=== PATIENT | male | born 1960 | race Caucasian/White ===

== ENCOUNTER 2019-04-07 06:41 | Day surgery (SDC) | payer BC ==
--- NOTE | 2019-04-04 11:34 | RAD REPORT ---
EXAM DESCRIPTION: Renetta Santos (2 Views)04/04/2019 11:21 am CLINICAL HISTORY: Preop for cardiac catheterization COMPARISON: 2017 FINDINGS: The lungs appear clear of acute infiltrate. The heart is normal size IMPRESSION: No acute abnormalities displayed
[2019-04-04 11:56] LABS: Absolute Lymphocytes (CBC) 1.3 K/uL (0.7-4.9); Basophils % 1.4 % (0-1.3); Lymphocytes % 17.2 % (15.3-44.8); MPV 9.2 fL (7.6-11.3); RBC Red Blood Cell Count 5.12 M/uL (4.33-5.43)
[2019-04-04 12:00] LABS: Protime INR 1.11
[2019-04-04 12:04] LABS: Potassium 4.9 mmol/L (3.5-5.1)
[2019-04-07] MEDS ORDERED: LIDOCAINE 1% MPF 30 ML VIAL ONE (07:10)
[2019-04-07] MEDS ORDERED: HEPA 1000U/500MLS 1,000 UNIT/500 ML BAG IV ONE ×2 (07:10→07:17)
[2019-04-07] MEDS ORDERED: NA CHLORIDE 0.9% 500 ML ONE (07:20)
[2019-04-07] MEDS ORDERED: HEPARIN 5000 UNIT/ML 1 ML VIAL ONE (07:50)
[2019-04-07] MEDS ORDERED: NA CHLORIDE 0.9% 0 ML ONE (07:51)
[2019-04-07] MEDS ORDERED: NITROGLYCERIN 100 MCG/ML SYR (for cath lab use only) IV ONE (07:51)
[2019-04-07] MEDS ORDERED: FENTANYL CITR 100 MCG/2 ML ONE (07:51)
[2019-04-07] MEDS ORDERED: ATROPINE SULF 1 MG/10 ML SYR IV ONE (07:51)
[2019-04-07] MEDS ORDERED: MIDAZOLAM HCL 2 MG/2 ML INJ ONE ×2 (07:51→08:14)
[2019-04-07] MEDS ORDERED: NITROGLYCERIN/D5W 25 MG/250 ML BTL IV ONE (07:51)
[2019-04-07] MEDS ORDERED: NICARDIPINE HCL 25 MG/10 ML IV ONE (07:51)
[2019-04-07] MEDS ORDERED: ACETYLCYST 20% 4 ML VIAL IH ONE (07:53)
[2019-04-07 09:25] VITALS: TEMP 97
[2019-04-07 10:44] VITALS: BP 107/69; O2SAT 98
--- NOTE | 2019-04-07 18:59 | OP ---
Surgeon: Tirso Duggan MD Identification: A 58-year-old man. Primary Care Physician: Stephen Sheridan MD Procedures: Left heart catheterization, coronary angiography. No left ventriculogram was done due t o elevated creatinine. Procedure Findings: The patient had normal pressures. His coronary arteries were free of any signif icant disease. An LAD stent in the mid LAD had been placed several years ago. It was widely patent. There was a 40% plaque distal to the stent, 40% plaque in the mid RCA, diffuse mild lumen irregular ities, and there was no indication for coronary or other intervention. Procedure In Detail: The patient was brought to the cardiac laborer/grade check in a fasting state, sedated wit h Versed and fentanyl, titrated to an adequate level of sedation. Right radial approach was used. W e anesthetized the skin around the right radial artery with 1% lidocaine. We entered the artery with a 21-gauge needle, cannulated it with a 0.021 inch diameter guidewire and placed the sheath. For eath placement, had to be modified and redone. So, we went through the same procedure twice and we g ave a good sheath placement the second time. A radial cocktail was given. I then used a Glidewire w ith a short radius J-tip inside a TIG catheter. We guided the TIG catheter to the ascending aorta. We were able to take pressures in the left ventricle, angiogram of left and right coronaries with the same catheter. At the end of the procedure after the decision had been made not to do an interventi on, we removed the catheter over a guidewire, flushed the sheath, removed, and closed the arteriotomy using a TR band. Estimated Blood Loss: 5 cc. Complications: None. STEPHANIE/MODL Voice ID: [id number] Report ID: [id number]
== END 2019-04-07 10:46 | disposition home or self-care (01) ==
LOC: CCL 06:41
PROVIDERS: ATTEND Internal Medicine
PROC: 4A023N7 Measurement of Cardiac Sampling and Pressure, Left Heart, Percutaneous Approach (ICD-10-PCS; principal; 2019-04-07)
PROC: B201YZZ Plain Radiography of Multiple Coronary Arteries using Other Contrast (ICD-10-PCS; 2019-04-07)
PROC: B205YZZ Plain Radiography of Left Heart using Other Contrast (ICD-10-PCS; 2019-04-07)
DX: I25.10 Atherosclerotic heart disease of native coronary artery without angina pectoris (principal); I10 Essential (primary) hypertension; E78.2 Mixed hyperlipidemia; F17.200 Nicotine dependence, unspecified, uncomplicated
CPT/HCPCS: 85025; 80048; 36415; 85610; 82947; 85730; 71046; 93458; C1893; J1644; J2250 ×2; J3010; J7040; J0583

== ENCOUNTER 2025-01-05 11:32 | Emergency (ER) | payer OTHER ==
--- OUTSIDE RECORDS SUMMARY | 2025-01-05 11:36 | XMS REPORT | Continuity of Care Document ---
Author Name Unknown Address [address] [facility] [address] [place] [address] [facility] [place] Address [address] [facility] [address] [place] [address] Care Team Providers Care Insole Stiffener Name Role Phone Stephen Sheridan Primary Care Physician + [phone] KATELYN COLE Attending Clinician Unavailable KATELYN COLE Attending Clinician Unavailable [facility] Urology 1 - Attending Clinician Unavailable Danny Wen MD Attending Clinician [phone] Doctor Unassigned, Holly Attending Clinician U navailable DANNY WEN Attending Clinician Unavailable Judy Montalvo RN Attending Clinician Unavailab le Only, Ang Db Test Attending Clinician Unavailabl e EbOk Greco Attending Clinician [phone] OK SAUL Attending Clinician Unavailable Candy Matthews Attending Clinician [phone] CANDY PERALES Attending Clinician Unavailable TING VELASCO Attending Clinician Unavailable Lab, Adc Fam Pob I Attending Clinician Unavailab Tawanna Burr Attending Clinician [phone] TAWANNA SEAY Attending Clinician Unavailable Matilda Walker Attending Clinician [phone] MATILDA MCCARTNEY Attending Clinician Unavailable KATELYN COLE Admitting Clinician Unavailable Payers Payer Name Policy Type Policy Number Effective Date Expirati on Date Source [facility] OUT [facility] STATE [id number] 2022 00:00:00 [facility] UMR [id number] 2023 00:00:00 Problems Condition Name Condition Details Condition Category Status Onset Date Resolution Date Last Treatment Date Treating Clinician Comments Source Encysted hydrocele Encysted hydrocele Disease Active 12-24 00:00: 00 [facility] Non-recurr ent unilateral inguinal hernia without obstructio n or gangrene Non-recurr ent unilateral inguinal hernia without obstructio n or gangrene Disease Active 2022-04 00:00: 00 [facility] Hydrocele, unspecifie d hydrocele type Hydrocele, unspecifie d hydrocele type Disease Active 2022-04 00:00: 00 [facility] Non-recurr ent bilateral inguinal hernia without obstructio n or gangrene Non-recurr ent bilateral inguinal hernia without obstructio n or gangrene Disease Active 2022-04 00:00: 00 [facility] Encounter for screening colonoscop y Encounter for screening colonoscop y Disease Active 2022-04 00:00: 00 [facility] Allergies, Adverse Reactions, Alerts Allergy Name Allergy Type Status Severity Reaction(s) Onset Date Inactive Date Treating Clinician Comments Source HYDROMOR PHONE DRUG INGREDI Active Med ITCHING 2022-04 00:00: 00 [facility] Hydromor phone Propensi ty to adverse reaction s to drug Active Itching 2022-04 00:00: 00 [facility] Hydromor phone Allergy to substanc e Active Itching 2022-04 00:00: 00 Other Reaction( s): Unknown [facility] NO KNOWN ALLERGIE S Drug Class Active [facility] Social History Social Habit Start Date Stop Date Quantity Comments Source Exposure to SARS-CoV-2 (event) Not sure [facility] Sexual orientation [facility] Tobacco use and exposure 2024-12-24 00:00:00 2024-12-24 00:00:00 Smokeless tobacco non-user [facility] History of Social function 2024-12-24 00:00:2024-12-24 00:00:00 [facility] Sex 2024-12-18 10:11:16 2024-12-18 10:11:16 Male (finding) [facility] Sex assigned at 1960 00:00:00 1960 00:00:00 [facility] Smoking Status Start Date Stop Date Source Never smoked tobacco [facility] Tobacco smoking consumption unknown [facility] Medications Ordered Medication Name Filled Medication Name Start Date Stop Date Current Medication? Ordering Clinician Indication Dosage Frequency Signature (SIG) Comments Components Source Ozempic, 2 MG/DOSE, 8 MG/3ML solution pen-injecto r 12-24 08:30: 35 Yes 2mg Inject 2 mg under the skin 1 (one) time per week. [facility] hydrOXYzine HCl (Atarax) 25 MG tablet 12-09 00:00: 00 Yes 1{tbl} QD Take 1-2 tablets by mouth at night if needed for itching. [facility] predniSONE (Deltasone) 10 MG tablet 12-09 00:00: 00 Yes 1{tbl} Take 1 tablet by mouth if needed. [facility] triamcinolo ne (Kenalog) 0.1 % cream 12-09 00:00: 00 Yes APPLY SPARINGLY TO AFFECTED AREA TOPICALLY TWICE A DAY NEEDED FOR 7-10 DAYS OR LESS [facility] Farxiga 10 MG 12-09 00:00: 00 Yes 10mg QD Take 10 mg by mouth in the morning. [facility] fluticasone (Flonase) 50 MCG/ACT nasal spray 11-29 00:00: 00 Yes 1{spray } QD Administer 1-2 sprays into each nostril in the morning. [facility] doxepin (SINEquan) 25 MG capsule 11-27 00:00: 00 Yes 25mg Take 25 mg by mouth every night. [facility] tiZANidine (Zanaflex) 4 MG tablet 11-27 00:00: 00 Yes TAKE 1/2 TO 1 TABLET BY MOUTH IN THE EVENING NEEDED [facility] Xarelto 20 MG tablet 11-16 00:00: 00 Yes 20mg QD Take 20 mg by mouth in the morning. with food. [facility] rosuvastati n (Crestor) 20 MG tablet 10-02 00:00: 00 Yes 20mg QD Take 20 mg by mouth in the morning. [facility] gabapentin (Neurontin) 600 MG tablet 04 00:00: 00 Yes 600mg Q.5D Take 600 mg by mouth in the morning and 600 mg before bedtime. [facility] furosemide (Lasix) 20 MG tablet -02 00:00: 00 Yes 20mg Take 20 mg by mouth if needed. MAX 2-3 TIMES A WEEK [facility] traMADol (Ultram) 50 MG tablet 12-30 00:00: 00 Yes 50mg Take 50 mg by mouth every 8 (eight) hours if needed. [facility] water for irrigation irrigation solution 2022-04 14:59: 00 02-13 15:45 :48 No PRN, Starting on Sun02/13/23 at 0859, Until Sun02/13/23 at 0945, Routine, Intra-op [facility] simethicone (GAS RELIEF (SIMETHICON E)) 40 mg/0.6 mL drops 2022-04 14:59: 00 02-13 15:45 :48 No PRN, Starting on Sun02/13/23 at 0859, Until Sun02/13/23 at 0945, Routine, Intra-op [facility] lactated ringers IV infusion 1,000 mL 2022-04 13:15: 00 02-13 13:29 :00 No 1000mL at 42 mL/hr, 1,000 mL, IV Infusion, ONCE, 1 dose, On Sun02/13/23 at 0715, Routine, DSU Pre-op [facility] semaglutide (OZEMPIC) 2 mg/dose (8 mg/3 mL) PnIj 2022-04 11:07: 23 Yes 2mg inject 2 mg under the skin every 2 (two) weeks. Last dose 01/26/23 [facility] semaglutide (OZEMPIC) 2 mg/dose (8 mg/3 mL) PnIj 2022-04 0 11:35: 37 Yes 2mg inject 2 mg under the skin every 2 (two) weeks. Last dose 01/26/23 [facility] peg-electro lyte soln 236-22.74-6 .74 -5.86 gram solution 2022-04 0 00:00: 00 02-06 04:59 :00 No 4000mL Take 4,000 mL by mouth once now for 1 dose. [facility] semaglutide (OZEMPIC) 2 mg/dose (8 mg/3 mL) PnIj 2022-04 14:58: 06 Yes [facility] XARELTO 20 mg tablet 12-04 00:00: 00 Yes 20mg Take 1 tablet by mouth at bedtime. [facility] gabapentin 600 mg tablet 12-03 00:00: 00 Yes 600mg Take 1 tablet by mouth in the morning and 1 tablet in the evening. [facility] gabapentin 600 mg tablet 12-03 00:00: 00 Yes 1200mg Take 2 tablets by mouth at bedtime. [facility] rosuvastati n 20 mg tablet 10-16 00:00: 00 Yes 20mg Take 1 tablet by mouth at bedtime. [facility] No known medications 1 17:49: 50 No [facility] Vital Signs Vital Name Observation Time Observation Value Comments S ource Systolic blood pressure 2024-12-24 13:26:00 108 mm[Hg] [facility] Diastolic blood pressure 2024-12-24 13:26:00 66 mm[Hg] [facility] Heart rate 2024-12-24 13:26:00 51 /min [facility] Respiratory rate 2024-12-24 13:26:00 16 /min [facility] Body height 2024-12-24 13:26:00 [facility]4 [facility] weight 2024-12-24 13:26:00 [facility]239 [facility] BMI 2024-12-24 13:26:00 30.03 [facility] Sy[facility]olic blood pressure 2023-03-05 20:08:00 137 mm[Hg] [facility] Diastolic blood pressure 2023-03-05 20:08:00 81 mm[Hg] [facility] Heart rate 2023-03-05 20:08:00 60 /min [facility] Body temperature 2023-03-05 20:08:00 36.56 [facility] Respiratory rate 2023-03-05 20:08:00 18 /min [facility] Body height 2023-03-05 20:08:00 185.4 cm [facility] Body weight 2023-03-05 20:08:00 98.431 kg [facility] BMI 2023-03-05 20:08:00 28.63 kg/m2 [facility] Oxygen saturation in Arterial blood by Pulse oximetry 2023-03-05 20:08:00 98 /min [facility] Heart rate 2023-02-13 16:27:00 59 /min [facility] Oxygen saturation in Arterial blood by Pulse oximetry 2023-02-13 16:27:00 94 /min [facility] Systolic blood pressure 2023-02-13 16:26:00 126 mm[Hg] [facility] Diastolic blood pressure 2023-02-13 16:26:00 72 mm[Hg] [facility] Respiratory rate 2023-02-13 16:26:00 15 /min [facility] Body temperature 2023-02-13 15:46:00 36.06 [facility] Body height 2023-02-06 16:00:00 185.4 cm [facility] Body weight 2023-02-06 16:00:00 99.338 kg [facility] BMI 2023-02-06 16:00:00 28.89 kg/m2 [facility] Systolic blood pressure 2023-02-13 13:17:00 136 mm[Hg] [facility] Diastolic blood pressure 2023-02-13 13:17:00 92 mm[Hg] [facility] Heart rate 2023-02-13 13:17:00 70 /min [facility] Body temperature 2023-02-13 13:17:00 36.39 [facility] Respiratory rate 2023-02-13 13:17:00 18 /min [facility] Oxygen saturation in Arterial blood by Pulse oximetry 2023-02-13 13:17:00 98 /min [facility] Body height 2023-02-06 16:00:[address] [facility] Body weight 2023-02-06 16:00:00 99.338 kg [facility] BMI 2023-02-06 16:00:00 28.89 kg/m2 [facility] Systolic blood pressure 2023-02-05 19:54:00 137 mm[Hg] [facility] Diastolic blood pressure 2023-02-05 19:54:00 81 mm[Hg] [facility] Heart rate 2023-02-05 19:54:00 60 /min [facility] Body temperature 2023-02-05 19:54:00 36.11 [facility] Respiratory rate 2023-02-05 19:54:00 18 /min [facility] Body height 2023-02-05 19:54:[address] [facility] Body weight 2023-02-05 19:54:00 99.338 kg [facility] BMI 2023-02-05 19:54:00 28.89 kg/m2 [facility] Oxygen saturation in Arterial blood by Pulse oximetry 2023-02-05 19:54:00 100 /min [facility] Systolic blood pressure 2023-01-23 19:56:00 139 mm[Hg] [facility] Diastolic blood pressure 2023-01-23 19:56:00 77 mm[Hg] [facility] Heart rate 2023-01-23 19:56:00 76 /min [facility] Body temperature 2023-01-23 19:56:00 36.78 [facility] Respiratory rate 2023-01-23 19:56:00 18 /min [facility] Body height 2023-01-23 19:56:00 185.4 cm [facility] 2023-01-23 19:56:00 104.327 kg [facility] BMI 2023-01-23 19:56:00 30.34 kg/m2 [facility] Oxygen saturation in Arterial blood by Pulse oximetry 2023-01-23 19:56:00 92 /min [facility] Procedures Procedure Date / Time Performed Performing Clinician Source DISCLOSURE AND CONSENT, MEDICAL AND SURGICAL PROCEDURES 2023-03-05 06:01:00 Doctor Unassigned, Holly [facility] COLONOSCOPY (ENDO) 2023-02-13 14:41:58 Stephen Sheridan [facility] COLONOSCOPY (ENDO) 2023-02-13 14:41:58 Stephen Sheridan [facility] COLONOSCOPY 2023-02-13 14:31:00 [facility] 2023-02-13 13:23:00 Kelsey [facility] POCT GLUCOSE (AUTOMATED) 2023-02-13 13:23:00 Kelsey [facility] DAY SURGERY - ADC 2023-02-13 06:01:00 Doctor Chacha ssigned, Holly [facility] DISCLOSURE AND CONSENT, MEDICAL AND SURGICAL PROCEDURES 2023-02-05 05:01:00 Doctor Unassigned, Holly [facility] MEDICAL RELEASE/CLEARANCE FORMS 2023-02-02 05:01:00 Doctor Unassigned, Holly [facility] EXTERNAL PROVIDER RECORDS 2023-02-01 05:01:00 Doctor Unassigned, Holly [facility] US SCROTUM AND CONTENTS 2023-01-31 19:45:00 Maged Wen [facility] CT ABDOMEN PELVIS WO CONTRAST 2023-01-31 19:02:00 Danny Wen [facility] POCT URINALYSIS AUTO 2023-01-23 19:59:00 Brennan Wen [facility] REFERRAL- REQUEST/RESPONSE 2023-01-18 05:01:00 Doctor Unassigned, Holly [facility] Encounters Start Date/Time End Date/Time Encounter Type Admission Type Attending Clinicians Care Facility Care Department Encounter ID Source 2023-03-20 15:19:24 Outpatient R [facility]N [facility] [id number] [facility] 2025-01-07 11:00:00 2025-01-07 11:00:00 Outpatient [facility] [id number] [facility] 2024-12-24 08:30:00 2024-12-24 09:03:25 Procedure Visit [facility] 1 - [facility] 1.2.840.114 350.1.13.58 9.2.7.2.686 [id number] [facility] 2023-05-07 00:00:00 2023-05-07 00:00:00 Telephone [facility] 1.2.840.114 350.1.13.10 4.2.7.2.686 [id number] [facility] 2023-03-22 00:00:00 2023-03-22 00:00:00 Telephone Kelsey [facility] BU[facility]ING 1.2.840.114 350.1.13.10 4.2.7.2.686 [id number] [facility] 2023-03-06 00:00:00 2023-03-06 00:00:00 Telephone Danny Wen [facility] 1.2.840.114 350.1.13.10 4.2.7.2.686 [id number] [facility] 2023-03-06 00:00:00 2023-03-06 00:00:00 Patient Secure Msg Doctor Unassigned, Holly [facility] 1.2.840.114 350.1.13.10 4.2.7.2.686 [id number] [facility] 2023-03-05 14:30:00 2023-03-05 15:20:54 Outpatient R KATELYN COLE [facility] [id number] [facility] 2023-03-05 14:30:00 2023-03-05 15:20:54 [facility] 1.2.840.114 350.1.13.10 4.2.7.2.686 [id number] [facility] 2023-03-05 00:00:00 2023-03-05 00:00:00 Orders Only Doctor Unassigned, Holly [facility] 1.2.840.114 350.1.13.10 4.2.7.2.686 [id number] [facility] 2023-02-28 00:00:00 2023-02-28 00:00:00 Telephone [facility] BUILDING 1.2.840.114 350.1.13.10 4.2.7.2.686 [id number] [facility] 2023-02-28 00:00:00 2023-02-28 00:00:00 [facility] 1.2.840.114 350.1.13.10 4.2.7.2.686 [id number] [facility] 2023-02-26 13:30:00 2023-02-26 13:30:00 Outpatient R KATELYN COLE [facility] [id number] [facility] 2023-02-13 07:05:00 2023-02-13 10:41:00 [facility] [id number] [facility] 2023-02-13 07:05:00 2023-02-13 10:41:00 [facility] 1.2.840.114 350.1.13.10 4.2.7.2.686 [id number] [facility] 2023-02-13 08:22:00 2023-02-13 09:26:00 Surgery [facility] 1.2.840.114 350.1.13.10 4.2.7.2.686 [id number] [facility] 2023-02-05 15:45:00 2023-02-05 16:22:22 Outpatient R KELSEY KATELYN COLE [facility] [id number] [facility] 2023-02-05 15:45:00 2023-02-05 16:22:22 Office Visit [facility] 1.2.840.114 350.1.13.10 4.2.7.2.686 [id number] [facility] 2023-02-05 00:00:00 2023-02-05 00:00:00 Orders Only Doctor Unassigned, Holly [facility] 1.2.840.114 350.1.13.10 4.2.7.2.686 [id number] [facility] 2023-02-02 00:00:00 2023-02-02 00:00:00 Orders Only Doctor Unassigned, Holly [facility] 1.2.840.114 350.1.13.10 4.2.7.2.686 [id number] [facility] 2023-02-01 00:00:00 2023-02-01 00:00:00 Telephone Behzad [facility] 1.2.840.114 350.1.13.10 4.2.7.2.686 [id number] [facility] 2023-02-01 00:00:00 2023-02-01 00:00:00 Orders Only Doctor Unassigned, Holly [facility] 1.2.840.114 350.1.13.10 4.2.7.2.686 [id number] [facility] 2023-01-31 13:46:04 2023-01-31 23:59:00 Hospital Encounter [facility] 1.840.114 350.1.13.10 4.2.7.2.686 [id number] [facility] 2023-01-31 13:45:52 2023-01-31 13:45:52 Outpatient R [facility] [id number] [facility] 2023-01-31 13:45:52 2023-01-31 13:45:52 Hospital Encounter [facility] 1.840.114 350.1.13.10 4.2.7.2.686 [id number] [facility] 2023-01-23 15:00:00 2023-01-23 15:30:32 Outpatient R [facility] [id number] [facility] 2023-01-23 15:00:00 2023-01-23 15:30:32 [facility] 1.0.114 350.1.13.10 4.2.7.2.686 [id number] [facility] 2023-01-18 00:00:00 2023-01-18 00:00:00 Orders Only Doctor Unassigned, Holly [facility] 1.0.114 350.1.13.10 4.2.7.2.686 [id number] [facility] 2023-01-18 00:00:00 2023-01-18 00:00:00 Telephone [facility] BUILD[facility] 1.2.114 350.1.13.10 4.2.7.2.686 [id number] [facility] 2021-05-13 00:00:00 2021-05-13 00:00:00 Letter (Out) Selvin, Judy [facility] 1.114 350.1.13.10 4.2.7.2.686 [id number] [facility] 2021-05-12 10:15:00 2021-05-12 10:30:00 Laboratory Only Only, Ang Db Test Yuli [facility] OFF[facility] BUILDING 1.114 350.1.13.10 4.2.7.2.686 [id number] [facility] 2021-05-12 10:15:00 2021-05-12 10:05:39 [address] [facility] [id number] [facility] 2021-04-16 00:00:00 2021-04-16 00:00:00 Letter (Out) Judy Montalvo [facility] 1.114 350.1.13.10 4.2.7.2.686 [id number] [facility] 2021-04-14 18:00:00 2021-04-14 18:15:00 Laboratory Only Only, Ang Db Test Petar [facility] OFF[facility] BUILD[facility] 1.114 350.1.13.10 4.2.7.2.686 [id number] [facility] 2021-04-14 18:00:00 2021-04-14 17:53:28 Outpatient R CANDY PERALES [facility] [id number] [facility] 2020-09-22 08:45:00 2020-09-22 08:45:00 Outpatient TING MORENO [facility] [id number] [facility] 2020-07-08 08:25:13 2020-07-08 08:45:13 Laboratory Only Lab, Adc Fam Tawanna Delatorre [facility] Diane [facility] Office Building [address] 1..114 350.1.13.10 4.2.7.2.686 [id number] [facility] 2020-07-08 08:20:00 2020-07-08 08:20:00 Outpatient TAWANNA BYNUM [facility] [id number] [facility] 2020-02-06 10:13:13 2020-02-06 10:33:13 Laboratory Only Lab, [facility] ..840.114 350.1.13.10 4.2.7.2.686 [id number] [facility] 2020-02-06 10:20:00 2020-02-06 10:20:00 [facility] [id number] [facility] 2019-12-10 08:10:13 2019-12-10 08:30:13 Laboratory Only Lab, [facility] ..840.114 350.1.13.10 4.2.7.2.686 [id number] [facility] 2019-12-10 08:30:00 2019-12-10 08:30:00 [facility] [id number] [facility] Results Test Description Test Time Test Comments Results Result Co mments Source [facility] GLUCOSE (AUTOMATED)2023-02-13 13:25:10* Test Item Value Reference Range Interpretation Comme nts POCT GLU (test code = 6464818624) 104 mg/dL 70-110 Lab Interpretation (test cod e = [id number]) Normal [facility] URINALYSIS, [id number] 20:00:00 * Test Item Value Reference Range Interpretation Comme nts POCT U SP GRAV (test code = 3255) 1.020 mg/dl 1.005-1.025 POCT PH U (test code = 3254) 5.5 mg/dl 5-8 POCT U LEUK EST (test code = 3263) NEGATIVE Negative - Negative POCT U NIT (test code = 3262) NEGATIVE Negative - Negati ve POCT U PROT (test code = 3259) 30 Negative - Negative POCT U GLU (test code = 3256) NEGATIVE Negative - Negati ve POCT U KETONE (test code = 3258) NEGATIVE Negative - Negative POCT U UROBILI (test code = 3260) 1.0 mg/dl 0.2-1 POCT U BILI (test code = 3261) SMALL Negative - Negative POCT U BLD (test code = 3257) NEGATIVE Negative - Negati ve POCT U COLOR (test code = 3266) MATT POCT U APPEAR (test code = 3267) [facility] [id number] 20:00:00 * Test Item Value Reference Range Interpretation Comme nts POCT U SP GRAV (test code = 3255) 1.020 mg/dl 1.005-1.025 POCT PH U (test code = 3254) 5.5 mg/dl 5-8 POCT U LEUK EST (test code = 3263) NEGATIVE Negative - Negative POCT U NIT (test code = 3262) NEGATIVE Negative - Negati ve POCT U PROT (test code = 3259) 30 Negative - Negative POCT U GLU (test code = 3256) NEGATIVE Negative - Negati ve POCT U KETONE (test code = 3258) NEGATIVE Negative - Negative POCT U UROBILI (test code = 3260) 1.0 mg/dl 0.2-1 POCT U BILI (test code = 3261) SMALL Negative - Negative POCT U BLD (test code = 3257) NEGATIVE Negative - Negati ve POCT U COLOR (test code = 3266) MATT POCT U APPEAR (test code = 3267) CLEAR [facility] Notes Date/Time Note Provider Source 2023-05-07 14:12:23 Patient called to inform Dr. Cole and Dr. Wen that he will not have surgery. He went to another doctor and will not follow up with [facility]. This nurse voiced understanding. Patient did not have any other issues or concerns at this time. Y Tenorio [facility]
[2025-01-05 12:21] LABS: Absolute Lymphocytes (CBC) 0.9 K/uL (0.7-4.9); Hematocrit 34.8 % (39.6-49.0); Hemoglobin 11.4 g/dL (13.6-17.9); MCH 28.1 pg (27.0-35.0); MCHC 32.9 g/dL (32.0-36.0); MCV 85.3 fL (80-100); MPV 8.6 fL (7.6-11.3); Nucleated RBC Absolute Count 0.0 (0-0); Nucleated Red Blood Cells % 0.0 % (0-0); RBC Red Blood Cell Count 4.08 M/uL (4.33-5.43); White Blood Count 7.80 thou/uL (4.3-10.9)
[2025-01-05] MEDS ORDERED: ONDANSETRON 4 MG/2 ML VIAL ONE (12:27)
[2025-01-05] MEDS ORDERED: MORPHINE 4 MG/ML SYR ONE (12:28)
[2025-01-05 12:30] LABS: PT Prothrombin Time 19.5 SECONDS (10-13.0); Protime INR 1.75
[2025-01-05 12:43] LABS: ALT/SGPT 36.0 U/L (16-61); AST/SGOT 35.0 U/L (15-37); Albumin 3.1 g/dL (3.4-5.0); Albumin/Globulin Ratio 1.1 (1.1-1.8); Alkaline Phosphatase 49.0 U/L (45-117); Anion Gap 9.0 mEq/L (5.0-15.0); BUN Blood Urea Nitrogen 13.0 mg/dL (7-18); Bilirubin Indirect, Calculated 0.5 mg/dL (0.2-0.8); Globulin 2.9 g/dL (2.3-3.5); Glucose Level 145.0 mg/dL (74-106); Potassium 4.0 mEq/L (3.5-5.1); Troponin High Sensitivity 15.6 pg/mL (<58.9)
--- NOTE | 2025-01-05 12:48 | RAD REPORT ---
EXAMINATION: Abdomen Pelvis W Contrast CLINICAL INDICATION: Male, 64 years old.TRAUMA TECHNIQUE: CT abdomen and pelvis was performed, after the administration of IV contrast, as per [facility] protocol. Axial, sagittal and coronal reconstructions were obtained. One or more of the following dose reduction techniques were used: Automated exposure control, adjustment of the mA and/o r kV according to patient size, and/or iterative reconstruction. Unless otherwise specified, incidental findings do not require dedicated imaging follow-up. [id number]. COMPARISON: No prior exams FINDINGS: LOWER CHEST: No acute process identified.No significant pericardial effusion. Mild coronary artery ca lcifications. Small pericardial effusion. Coronary ossifications are present. Mild thickening distal esophagus. UPPER GI: Conner-en-Y gastric bypass. There is fluid present within the excluded stomach. No bowel obst ruction of the parent loop. LIVER: Hepatic steatosis, but otherwise unremarkable. GALLBLADDER/BILE DUCTS: No biliary ductal dilatation.? PANCREAS: No mass, ductal dilation, or josef-pancreatic fluid. SPLEEN: Unremarkable. ADRENALS: No adrenal masses. KIDNEYS AND URETERS: Absent right kidney.Left renal sinus and cortical cysts.No renal or ureteral kiet culi. ABDOMINAL AORTA AND OTHER VESSELS: Moderate atherosclerotic changes without aortic aneurysm. PERITONEUM: No abnormal free fluid. No free air. LYMPH NODES: No pathologic lymphadenopathy. ABDOMINAL WALL: Large left flank hematoma. Though no active bleeding is identified on this exam, this is not a CTA. Fat-containing inguinal hernias. SMALL BOWEL/COLON: Small bowel has normal course and caliber. No colonic wall thickening or pericolon ic inflammatory changes. URINARY BLADDER: Underdistended but grossly unremarkable. REPRODUCTIVE ORGANS: No pathologic process. MUSCULOSKELETAL: Multilevel degenerative changes in the spine. No acute fracture. ADDITIONAL FINDINGS: None. IMPRESSION: Large hematoma in the subcutaneous tissues of the left flank. Evaluation for active bleeding is limit ed given the phase of contrast (venous). A CTA could better assess for active bleeding if clinically indicated. No underlying fracture identified.
--- NOTE | 2025-01-05 13:10 | EDPHYS ---
Physician Documentation [facility] Name: Kaushal Frazier Age: 64 yrs Sex: Male : 1960 Arrival Date: 01/05/2025 Time: 11:32 Bed 2 Private MD: ED Physician Awa Cadena HPI: 01/05 12:18 This 64 yrs old Male presents to ER via Ambulatory with complaints of Fall Injury. 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 Patient denies head injury, neck pain, chest pain, back pain, abdominal pain, vomit, diarrhea or any other injuries. Pain is predominantly on the left buttock and pelvis. ROS otherwise negative.. Historical: - Allergies: 11:58 Dilaudid; ss - Home Meds: 11:58 Xarelto oral [Active]; ss - PMHx: 11:58 Atrial Fib; Depression; Myocardial infarction; neuropathy; ss - PSHx: 11:58 Appendectomy; bilateral knee surgery; Coronary Stent; Gastric Bypass; right kidney ss removal; - Immunization history:: Adult Immunizations unknown. - Infectious Disease History:: Denies. - Social history:: Smoking status: unknown. ROS: 12:21 Constitutional: Negative for fever, chills, and weight loss, Eyes: Negative for injury, sp3 pain, redness, and discharge, ENT: Negative for injury, pain, and discharge, Neck: Negative for injury, pain, and swelling, Cardiovascular: Negative for chest pain, palpitations, and edema, Respiratory: Negative for shortness of breath, cough, wheezing, and pleuritic chest pain, Back: Negative for injury and pain, Skin: Negative for injury, rash, and discoloration, Neuro: Negative for headache, weakness, numbness, tingling, and seizure, Psych: Negative for depression, anxiety, suicide ideation, homicidal ideation, and hallucinations, Allergy/Immunology: Negative for hives, rash, and allergies, Endocrine: Negative for neck swelling, polydipsia, polyuria, polyphagia, and marked weight changes, 12:21 All other systems are negative, Exam: 12:21 Constitutional: This is a well developed, well nourished patient who is awake, alert, sp3 and in no acute distress. Head/Face: Normocephalic, atraumatic. Eyes: Pupils equal round and reactive to light, extra-ocular motions intact. Lids and lashes normal. Conjunctiva and sclera are non-icteric and not injected. Cornea within normal limits. Periorbital areas with no swelling, redness, or edema. Neck: Trachea midline, no thyromegaly or masses palpated, and no cervical lymphadenopathy. Supple, full range of motion without nuchal rigidity, or vertebral point tenderness. No Meningismus. Chest/axilla: Normal chest wall appearance and motion. Nontender with no deformity. No lesions are appreciated. Cardiovascular: Regular rate and rhythm with a normal S1 and S2. No gallops, murmurs, or rubs. Normal PMI, no JVD. No pulse deficits. Respiratory: Lungs have equal breath sounds bilaterally, clear to auscultation and percussion. No rales, rhonchi or wheezes noted. No increased work of breathing, no retractions or nasal flaring. Abdomen/GI: Soft, non-tender, with normal bowel sounds. No distension or tympany. No guarding or rebound. No evidence of tenderness throughout. Back: No spinal tenderness. No costovertebral tenderness. Full range of motion. Neuro: Awake and alert, GCS 15, oriented to person, place, time, and situation. Cranial nerves II-XII grossly intact. Motor strength 5/5 in all extremities. Sensory grossly intact. Cerebellar exam normal. Normal gait. Psych: Awake, alert, with orientation to person, place and time. Behavior, mood, and affect are within normal limits. 12:21 Musculoskeletal/extremity: Large hematoma noted on the left buttock without any bleeding. Area is 6 cm x 8 cm. No bony tenderness along the midline spine.. 13:11 ECG was reviewed by the Attending Physician. EKG demonstrates atrial fibrillation with sp3 ventricular capture at 67 bpm with normal intervals except absent [place], normal QRS, normal axis and nonspecific ST/T changes without evidence of acute ischemia. Vital Signs: 11:54 BP 105 / 62; jl7 11:54 Pulse 71; Resp 18; Temp 97.9(O); Pulse Ox 98% on R/A; Weight 99.79 kg; Height 6 ft. 1 ss in. ; Pain 10/10; 12:58 BP 100 / 49; Pulse 75; Resp 15; Pulse Ox 99% ; Pain 6/10; jl7 12:58 Pain 6/10; jl7 13:45 BP 115 / 69; Pulse 76; Resp 15; Temp 97; Pulse Ox 98% ; jl7 11:54 Body Mass Index 29.03 (99.79 kg, 185.42 cm) ss 11:54 Pain Scale: Adult ss 12:58 Pain Scale: Adult jl7 12:58 Pain Scale: Adult jl7 [place] Coma Score: 11:59 Eye Response: spontaneous(4). Motor Response: obeys commands(6). Verbal Response: jl7 oriented(5). Total: 15. 12:58 Eye Response: spontaneous(4). Motor Response: obeys commands(6). Verbal Response: jl7 oriented(5). Total: 15. Trauma Score (Adult): 11:59 Eye Response: spontaneous(1); Verbal Response: oriented(1); Motor Response: obeys jl7 commands(2); Systolic BP: > 89 mm Hg(4); Respiratory Rate: 10 to 29 per min(4); Selvin Score: 15; Trauma Score: 12 MDM: 11:55 Medical Screening Exam initiated sp3 12:23 Data reviewed: vital signs, nurses notes, lab test result(s), radiologic studies. ED sp3 course: 64-year-old male on Xarelto with mechanical fall in the bathroom injuring left hip. Differential diagnosis includes left hip hematoma versus other internal injury versus hip fracture versus abdominal injury. Workup will include CT scan of the abdomen pelvis with IV contrast, general labs and pain and nausea control. Disposition pending workup and patient course.. 13:08 ED course: Labs without significant findings. CT demonstrates hematoma. I am not sp3 concerned about active bleeding. We will safely discharge patient home with general precautions.. 13:11 ED course: Will tell patient to hold Xarelto for the next 48 hours.. sp3 01/05 11:56 Order name: Basic Metabolic Panel; Complete Time: 13:06 sp3 01/05 11:56 Order name: CBC with Diff; Complete Time: 13:06 sp3 01/05 11:56 Order name: LFT's; Complete Time: 13:06 sp3 01/05 11:56 Order name: PT-INR; Complete Time: 13:06 sp3 01/05 11:56 Order name: Troponin HS; Complete Time: 13:06 sp3 01/05 11:56 Order name: CT Abd/Pelvis - IV Contrast Only: fall, buttock hematoma; Complete Time: sp3 13:01/05 11:56 Order name: Cardiac monitoring; Complete Time: 12:55 sp3 01/05 11:56 Order name: EKG - Nurse/Tech; Complete Time: 12:55 sp3 01/05 11:56 Order name: IV Saline Lock; Complete Time: 12:33 sp3 01/05 11:56 Order name: Labs collected and sent; Complete Time: 12:33 sp3 01/05 11:56 Order name: O2 Sat Monitoring; Complete Time: 12:33 sp3 Administered Medications: 12:32 Drug: Ondansetron IVP 4 mg IVP once; over 2 minutes Route: IVP; Site: right antecubital;jl7 12:58 Follow up: Response: No adverse reaction jl7 12:33 Drug: morphine IVP or IV 4 mg IVP once over 4 mins Route: IVP; Infused Over: 4 mins; jl7 Site: right antecubital; 12:58 Follow up: Pain 6/10 Adult; Response: No adverse reaction; Pain is decreased; RASS: jl7 Alert and Calm (0) 13:59 Drug: [place] PO 10 mg-325 mg 1 tabs PO once Route: PO; jl7 14:10 Follow up: Response: Medication administered at discharge. jl7 Disposition Summary: 01/05/25 13:09 Discharge Ordered Notes: Hold your Xarelto for the next 48 hours Location: Home sp3 Condition: Stable sp3 Diagnosis - Left buttock hematoma, mechanical fall, hip contusion left side sp3 Followup: sp3 - With: Private Physician - When: Upon discharge from the Emergency Department - Reason: Recheck today's complaints, Continuance of care Discharge Instructions: - Discharge Summary Sheet sp3 - Hematoma sp3 Forms: - Work release form jl7 - Medication Reconciliation Form sp3 - Antibiotic Education sp3 - Prescription Opioid Use sp3 - Patient Portal Instructions sp3 - Leadership Thank You Letter sp3 Prescriptions: - Tramadol 50 mg Oral Tablet - take 1 tablet ORAL route every 8 hours as needed; 12 tablet; Refills: 0, sp3 Product Selection Permitted Signatures: Dispatcher [employer] EDMS Mel Stoddard, RN RN ss Chey Lugo RN RN jl7 Awa Cadena MD MD sp3 Corrections: (The following items were deleted from the chart) 11:57 11:57 BASIC METABOLIC PANEL+C.LAB.BRZ ordered. EDMS EDMS 11:57 11:57 CBC+H.LAB.BRZ ordered. EDMS EDMS 11:57 11:57 HEPATIC FUNCTION+C.LAB.BRZ ordered. EDMS EDMS 11:57 11:57 PROTIME (+INR)+COAG.LAB.BRZ ordered. EDMS EDMS 11:57 11:57 Troponin High Sensitivity+C.LAB.BRZ ordered. EDMS EDMS 11:57 11:57 Abdomen Pelvis W Con+CT.RAD.BRZ ordered. EDMS EDMS
--- NOTE | 2025-01-05 13:10 | ER ---
Nurse's Notes [facility] Name: Kaushal Frazier Age: 64 yrs Sex: Male : 1960 Arrival Date: 01/05/2025 Time: 11:32 Bed 2 Private MD: Diagnosis: Left buttock hematoma, mechanical fall, hip contusion left side Presentation: 01/05 11:54 Chief complaint: Patient states: pain, bruising and swelling to L buttocks after ss falling in shower at 0430 this am. Pt states that takes Xarelto. Coronavirus screen: Client denies travel out of the [place] in the last 14 days. Ebola Screen: Patient denies exposure to infectious person. Patient denies travel to an Ebola-affected area in the 21 days before illness onset. Initial Sepsis Screen: Does the patient meet any 2 criteria? No. Patient's initial sepsis screen is negative. Does the patient have a suspected source of infection? No. Patient's initial sepsis screen is negative. Risk Assessment: Do you want to hurt yourself or someone else? Patient reports no desire to harm self or others. Onset of symptoms was January 05, 2025. 11:54 Method Of Arrival: Ambulatory ss 11:54 Acuity: ANI 3 ss 11:59 Care prior to arrival: None. Mechanism of Injury: Fall. Trauma event details: Injury jl7 occurred: at home. Trauma Activation: Not Applicable Physician: ED Physician; Name: ; Notified At: ; Arrived At: Physician: General Surgeon; Name: ; Notified At: ; Arrived At: Physician: Radiology; Name: ; Notified At: ; Arrived At: Physician: Respiratory; Name: ; Notified At: ; Arrived At: Physician: Lab; Name: ; Notified At: ; Arrived At: Historical: - Allergies: 11:58 Dilaudid; ss - Home Meds: 11:58 Xarelto oral [Active]; ss - PMHx: 11:58 Atrial Fib; Depression; Myocardial infarction; neuropathy; ss - PSHx: 11:58 Appendectomy; bilateral knee surgery; Coronary Stent; Gastric Bypass; right kidney ss removal; - Immunization history:: Adult Immunizations unknown. - Infectious Disease History:: Denies. - Social history:: Smoking status: unknown. Screenin:59 Abuse screen: Denies threats or abuse. Denies injuries from another. Tuberculosis jl7 screening: No symptoms or risk factors identified. 13:45 [facility] ED Fall Risk Assessment (Adult) History of falling in the last 3 months, jl7 including since admission Yes- single mechanical fall (1 pt) Confusion or Disorientation No (0 pts) Intoxicated or Sedated No (0 pts) Impaired Gait No (0 pts) Mobility Assist Device Used No (0 pt) Altered Elimination No (0 pt) Score/Fall Risk Level 0 - 2 = Low Risk Oriented to surroundings, Maintained a safe environment. Nutritional screening: No deficits noted. Primary Survey: 11:59 NO uncontrolled hemorrhage observed. A: The client is awake and alert. The airway is jl7 patent. Breathing/Chest: Spontaneous respiratory effort, equal unlabored respirations, breath sounds clear bilaterally, regular pattern, symmetrical chest rise and fall. Circulation: No external hemorrhage present. Regular and strong central pulse, skin warm/dry/normal color. Disability Client is alert. Exposure/Environment: All clothing and personal items were removed. Forensic evidence collection is not deemed to be indicated at this time. Items placed in patient belonging bag. There is no evidence of uncontrolled external bleeding. Obvious injury(ies) are noted at this time: bruising to left buttocks A warming method has been applied: A warm blanket has been provided to the patient. 12:20 Reassessment Alertness and Airway: Awake and alert. The airway is patent. Breathing: jl7 Spontaneous respiratory effort, equal unlabored respirations, breath sounds clear bilaterally, regular pattern with symmetrical chest rise and fall. Circulation: No external hemorrhage noted. Regular and strong central pulse, skin warm/dry/normal color. Disability: Alert. Assessment: 11:59 General: Appears in no apparent distress. uncomfortable, Behavior is calm, cooperative, jl7 appropriate for age. Pain: Complains of pain in left lower back and left gluteus aram Pain currently is 10 out of 10 on a pain scale. Neuro: Mann Agitation-Sedation Scale (RASS): 0 - Alert and Calm. Derm: Bruising that is dark purple, on left gluteus aram. 12:55 Reassessment: Patient appears in no apparent distress at this time. Patient and/or jl7 family updated on plan of care and expected duration. Pain level reassessed. Patient is alert, oriented x 3, equal unlabored respirations, skin warm/dry/pink. pain rated 6/10 at this time. Neuro: Mann Agitation-Sedation Scale (RASS): 0 - Alert and Calm. Vital Signs: 11:54 BP 105 / 62; jl7 11:54 Pulse 71; Resp 18; Temp 97.9(O); Pulse Ox 98% on R/A; Weight 99.79 kg; Height 6 ft. 1 ss in. ; Pain 10/10; 12:58 BP 100 / 49; Pulse 75; Resp 15; Pulse Ox 99% ; Pain 6/10; jl7 12:58 Pain 6/10; jl7 13:45 BP 115 / 69; Pulse 76; Resp 15; Temp 97; Pulse Ox 98% ; jl7 11:54 Body Mass Index 29.03 (99.79 kg, 185.42 cm) ss 11:54 Pain Scale: Adult ss 12:58 Pain Scale: Adult jl7 12:58 Pain Scale: Adult jl7 Selvin Coma Score: 11:59 Eye Response: spontaneous(4). Motor Response: obeys commands(6). Verbal Response: jl7 oriented(5). Total: 15. 12:58 Eye Response: spontaneous(4). Motor Response: obeys commands(6). Verbal Response: jl7 oriented(5). Total: 15. Trauma Score (Adult): 11:59 Eye Response: spontaneous(1); Verbal Response: oriented(1); Motor Response: obeys jl7 commands(2); Systolic BP: > 89 mm Hg(4); Respiratory Rate: 10 to 29 per min(4); Morgan Score: 15; Trauma Score: 12 ED Course: 11:34 Patient arrived in ED. im 11:34 Awa Cadena MD is Attending Physician. sp3 11:49 Chey Lugo, GLORIA is Primary Nurse. jl7 11:58 Triage completed. ss 11:58 Arm band placed on right wrist. ss 11:59 Patient has correct armband on for positive identification. Placed in gown. Bed in low jl7 position. Call light in reach. Side rails up X 1. 11:59 Patient maintains SpO2 saturation greater than 95% on room air. Thermoregulation: warm jl7 blanket given to patient. 12:15 Initial lab(s) drawn, by me, sent to lab. IV discontinued, intact, bleeding controlled, jl7 No redness/swelling at site. Pressure dressing applied. Inserted saline lock: 20 gauge in right antecubital area, using aseptic technique. Blood collected. Flushed with 10 mL NS. 12:23 CT Abd/Pelvis - IV Contrast Only: fall, buttock hematoma In Process Unspecified. EDMS 13:45 Provided Education on: use of call wells. jl7 13:45 No provider procedures requiring assistance completed. jl7 Administered Medications: 12:32 Drug: Ondansetron IVP 4 mg IVP once; over 2 minutes Route: IVP; Site: right antecubital;jl7 12:58 Follow up: Response: No adverse reaction jl7 12:33 Drug: morphine IVP or IV 4 mg IVP once over 4 mins Route: IVP; Infused Over: 4 mins; jl7 Site: right antecubital; 12:58 Follow up: Pain 6/10 Adult; Response: No adverse reaction; Pain is decreased; RASS: jl7 Alert and Calm (0) 13:59 Drug: [place] PO 10 mg-325 mg 1 tabs PO once Route: PO; jl7 14:10 Follow up: Response: Medication administered at discharge. jl7 Medication: 13:45 VIS not applicable for this client. jl7 Outcome: 13:09 Discharge ordered by . zo 14:11 Discharged to home ambulatory, with friend, jl 14:11 Condition: stable 14:11 Discharge instructions given to patient, Instructed on discharge instructions, follow up and referral plans. medication usage, Demonstrated understanding of instructions, follow-up care, medications, Prescriptions given X 1, 14:11 Patient left the ED. jl7 Signatures: Dispatcher [employer] EDMS Mel Stoddard, RN RN Chey Gunderson RN RN jl7 Awa Cadena MD MD sp3 Zainab Melvin
[2025-01-05] MEDS ORDERED: HYDROCODONE/APAP 10/325 TAB ONE (13:53)
[2025-01-05 14:55] VITALS: BP 115/69; TEMP 97; O2SAT 98
== END 2025-01-05 14:11 | disposition home or self-care (01) ==
LOC: ER 11:32
DX: S30.0XXA Contusion of lower back and pelvis, initial encounter (principal); S70.02XA Contusion of left hip, initial encounter; W18.30XA Fall on same level, unspecified, initial encounter; I48.91 Unspecified atrial fibrillation; Z79.01 Long term (current) use of anticoagulants
CPT/HCPCS: 93005; 85025; 80048; 36415; 85610; 80076; 84484; 74177; 96375; 96374; 99284; Q9967; J2405

== ENCOUNTER 2025-01-14 08:12 | Day surgery (SDC) | payer OTHER ==
[2025-01-14 08:23] LABS: PT Prothrombin Time 12.8 SECONDS (10-13.0); PTT, Activated Partial Thromb 28.7 SECONDS (27.2-37.4); Protime INR 1.14
[2025-01-14] MEDS ORDERED: NA CHLORIDE 0.9% 500 ML ONE (08:52)
--- NOTE | 2025-01-14 08:58 | RAD REPORT ---
EXAMINATION: TWO VIEW CHEST XR CLINICAL INDICATION: Male, 64 years old. . Hypertension. pre op for day surgery TECHNIQUE: 2 view radiographs of the chest were performed. COMPARISON: 04/04/2019 FINDINGS: The lungs are well inflated and clear. No pneumothorax or sizable effusion. The heart is normal in si ze. Mediastinal contours are unremarkable. IMPRESSION: No acute or significant abnormalities.
[2025-01-14] MEDS: MORPHINE 4 MG/ML SYR IV ONE (09:45)
[2025-01-14] MEDS ORDERED: MORPHINE 4 MG/ML SYR ONE ×3 (09:50→12:37)
[2025-01-14] MEDS ORDERED: LIDOCAINE 2% MPF 5 ML VIAL ONE (10:44)
[2025-01-14] MEDS ORDERED: ONDANSETRON 4 MG/2 ML VIAL ONE (10:44)
[2025-01-14] MEDS ORDERED: FENTANYL CITR 100 MCG/2 ML ONE (10:45)
[2025-01-14] MEDS ORDERED: MIDAZOLAM HCL 2 MG/2 ML INJ ONE (10:45)
[2025-01-14] MEDS: CEFAZOLIN SODIUM 1 GM/VIAL ONE (11:24)
[2025-01-14] MEDS ORDERED: GLYCOPYRROLATE 0.2 MG/ML SYR ONE (12:01)
--- NOTE | 2025-01-14 12:13 | P.BOP ---
Preoperative diagnosis: large tender infected hematoma left buttock Postoperative diagnosis: same Primary procedure: Evacuation of large tender infected hematoma left buttock [id number] Estimated blood loss: <10cc Specimen: none Findings: Large amount of clotted dark blood, no pus Anesthesia: General Complications: None Transferred to: Recovery Room Condition: Good
[2025-01-14] MEDS: FENTANYL CITR 100 MCG/2 ML ONE (12:18)
[2025-01-14 12:42] VITALS: O2SAT 100
--- NOTE | 2025-01-14 13:14 | OP ---
Date of Procedure: 01/14/2025 Surgeon: Terell Garcia MD Preoperative Diagnosis: Large tender infected hematoma in the left buttock. Postoperative Diagnosis: Large tender infected hematoma in the left buttock. Procedure: Evacuation of large tender infected hematoma, left buttock, 20 x 12 x 2 cm. Estimated Blood Loss: Less than 10 cc. Specimen: None. Findings: Large amount of dark clotted blood. No pus found. Anesthesia: General plus local. Indications: This is a case of a 64-year-old patient who a little bit of more than a week and a half ago he fell and developed the ecchymotic bruises over the left upper thigh, left lower leg, buttocks , part of the flank area. But in the buttock itself, there is very large tender buttock hematoma. H e is trying to put a warm compress trying to dissolve that area. He was even off the blood thinners for few days. Still he can sit. He is just too big and given pain and discomfort with the redness o f the skin, so he was started on antibiotics, and he wants that area evacuated. So, we explained to him the process of evacuation of the hematoma with benefits, alternatives, and risks including, but n ot limited to, infection, bleeding, damage to adjacent structures, anesthesia complication, abscess, recurrence, [place], and even . He also understands this may not relieve any symptoms, he might need more than one surgical intervention. Another issue we explained to him is once the blood is out, st ill a cavity behind may be full this time not with a clot, but may be a seroma. So, we asked him to put compression. He does not want me to use a drain or Matt-Fernandez suction drain. He said that he does not want it there. So, he is going to try and use compression to minimize any recurrence. He was advised also to avoid trauma. He signed a consent. Description Of Procedure: The area of concern was marked by me and the patient in the holding room. The patient was brought to the operating room, placed in supine position. Anesthesia was induced wi thout complication. The patient was placed in lateral decubitus position with proper protection. Le ft buttock was prepped and draped in a sterile fashion. A time-out was called. Local anesthesia was applied followed by a small incision enough to introduce Yankauer suction through all that area with the size described above. We found blood and old clot in that region. We irrigated the area multip le times and suctioned once again until we have all these debris off. The area collapsed. The skin looked nice and decompressed right now. We placed a nylon in one of the insertion sites. The patien t tolerated the procedure well. Local anesthesia was applied. Once again, patient did not want a dr goff. So, I put compression dressings on him. The patient tolerated the procedure well. The patient was sent to recovery in stable condition. EDUIN/ARIELLE Voice ID: [id number] Report ID: [id number]
[2025-01-14] MEDS: HYDROCODONE/APAP 10/325 TAB ONE (13:19)
--- NOTE | 2025-01-14 13:19 | DS ---
Diagnosis: Large tender hematoma in the left buttock. Procedure: Evacuation of large tender hematoma in the left buttock. Condition: Stable. Disposition: Home. Activity: As tolerated. No heavy lifting. Discharge Instructions: Follow up in my office in 1 week. Call for appointment at [phone]. Keep d ressings intact for 48 hours, then after that he should be using compression either with compression underwear or just replace with Boby wrap, whatever he can do since he wants to go back to work. I adv ised him not to have any trauma to that area. EDUIN/ARIELLE Voice ID: [id number] Report ID: [id number]
[2025-01-14 14:28] VITALS: BP 121/51; TEMP 98.4
== END 2025-01-14 14:15 | disposition home or self-care (01) ==
LOC: OR 08:12
PROVIDERS: ATTEND Surgery
PROC: 0J993ZZ Drainage of Buttock Subcutaneous Tissue and Fascia, Percutaneous Approach (ICD-10-PCS; principal; 2025-01-14 12:30)
DX: S30.0XXA Contusion of lower back and pelvis, initial encounter (principal); W18.2XXA Fall in (into) shower or empty bathtub, initial encounter
CPT/HCPCS: 36415; 85610; 82947 ×2; 85730; 71046; 10140; J2704; J2003; J2250; J3010 ×2; J2405; J7040; J0690